=== PATIENT | male | born 1955 | race Caucasian/White ===

== ENCOUNTER 2016-11-16 13:23 | Day surgery (SDC) | payer OTHER ==
[~2016-11-16] VITALS: Ht 182.9 cm; Wt 145.2 kg
[~2016-11-16 13:23] MED LIST: 0.9% Sodium Chloride 1,000 ML IV SCH; ASPI-973 PO; Sodium Chloride LOK Flush 10 mL Syringe IV PRN; fentaNYL-PF 50 mCg/mL 2 mL Inj IVPUSH PRN
[2016-11-16] MEDS ORDERED: fentaNYL-PF 50 mCg/mL 2 mL Inj IVPUSH ONE (13:24)
[2016-11-16 14:42] VITALS: BP 143/84; PULSE 73; RESP 19; O2SAT 95
[2016-11-16 15:24] VITALS: BP 140/88; PULSE 70; RESP 16; O2SAT 90
[2016-11-16 15:34] VITALS: BP 138/89; PULSE 69; RESP 16; O2SAT 95
[2016-11-16 15:41] VITALS: BP 148/85; PULSE 68; RESP 16; O2SAT 93
--- NOTE | 2016-11-17 02:55 | ENDO ---
[address] [address] ENDOSCOPY PROCEDURE PATIENT: MAGALY CORREA : 1955 MR#: [id number] ADMIT: 11/16/2016 JOB ID: [id number] DATE OF SERVICE: 11/16/2016 PROCEDURE: Colonoscopy. INDICATION: Hematochezia. The patient's ASA classification is two. Mallampati score is two. MEDICATIONS: 1. Versed at 3 mg. 2. Fentanyl 75 mcg. INSTRUMENT USED: PCF H 180 AL. PREPARATION QUALITY: Fair. PROCEDURE DETAILS: After informed consent was obtained, the patient was brought into the GI suite, where he was placed on oxygen via nasal cannula and monitored with continuous pulse oximeter, telemetry and blood pressure monitoring. A time-out was performed. Then, he was placed in a left lateral decubitus position and medications were administered for sedation. Digital rectal exam was performed. I was unable to palpate the prostate secondary to patient's body habitus. The colonoscope was then inserted into the rectum and advanced under direct visualization to the cecum, which was identified by the presence of the ileocecal valve and appendiceal orifice. Once the cecum was reached, the colonoscope was withdrawn back into the rectum as the mucosa and lumen were examined. In the rectum, retroflexion was performed. Following retroflexion, remaining air in the rectum was suctioned, and procedure was completed. FINDINGS: 1. In the cecum, there was a diminutive polyp that was removed with cold biopsy forceps. 2. In the ascending colon, there was an approximately 8 mm sessile polyp that was removed with a hot snare. Following polypectomy there was heme noted at the polypectomy site and therefore, one hemoclip was placed to approximate the mucosal margins. No active bleeding was present. 3. In the descending colon, there was an approximately 6 mm sessile polyp that removed with a hot snare. 4. In the proximal rectum, there was an approximately 2 cm pedunculated polyp that was removed with a hot snare. IMPRESSION: 1. Cecal polyp. 2. Ascending colon polyp. 3. Descending polyp. 4. Rectal polyp. RECOMMENDATIONS: 1. Avoid NSAIDs and anticoagulants for 72 hours. 2. Repeat colonoscopy in three years. 3. Follow up in GI clinic in 4-6 weeks. COMPLICATIONS: None. ESTIMATED BLOOD LOSS: Less than 5 mL. Cc: Dr. Katerina Lambert
--- NOTE | 2016-11-20 14:58 | PATH ---
SURGICAL PATHOLOGY Attending Physician:Tiny Rojas CASE STATUS: Signed Out PATIENT NAME: MAGALY CORREA PID: [id number] : 1955 DATE COLLECTED:11/16/2016 00:00 SPECIMEN: 1: Colon, Polyp 2: Colon, Polyp 3: Colon, Polyp 4: Rectum, Biopsy CLINICAL HISTORY: 1. CECUM POLYP 2. ASCENDING POLYP 3. DESCENDING POLYP 4. RECTAL POLYP FINAL DIAGNOSIS: 1.CECUM POLYP: TUBULAR ADENOMA. 2.ASCENDING COLON POLYP: SESSILE SERRATED ADENOMA. 3.DESCENDING COLON POLYP: TUBULAR ADENOMA. 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 ICD10 D12.0 GROSS DESCRIPTION: Received are four formalin-filled containers, each labeled with the patient' s name. 1. Received in formalin, labeled with the patient' s name and "cecum polyp", is one fragment of witt, soft tissue measuring 0.2 x 0.1 x 0.1 cm. The fragment is totally submitted in cassette 1A. 2. Received in formalin, labeled with the patient' s name and "ascending polyp", is one fragment of witt, soft tissue measuring 0.5 x 0.4 x 0.2 cm. The fragment is trisected and totally submitted in cassette 2A. 3. Received in formalin, labeled with the patient' s name and "descending polyp", is one fragment of witt, soft tissue measuring 0.3 x 0.3 x 0.3 cm. The fragment is bisected and totally submitted in cassette 3A. 4. Received in formalin, labeled with the patient' s name and "rectal polyp", is one witt, soft tissue fragment measuring 1.0 x 0.9 x 0.8 cm. The fragment is divided, and all fragments are totally submitted in cassette 4A. ([id number]) MICRO DESCRIPTION: See diagnosis. ICD-9 CODES: CPT CODES: 1: 46459 2: 67995 3: 81396 4: 20923 Electronically Signed Out Nish Saleem MD [facility] [address], [place] [address] Technical component performed at [facility], [facility] [address], [place], [address]
== END 2016-11-16 23:59 | disposition home or self-care (01) ==
LOC: END 13:23
PROVIDERS: ATTEND Internal Medicine Gastroenterology
DX: D12.0 Benign neoplasm of cecum (principal); D12.4 Benign neoplasm of descending colon; D12.8 Benign neoplasm of rectum; K63.5 Polyp of colon; K92.1 Melena; I10 Essential (primary) hypertension; E78.5 Hyperlipidemia, unspecified; E66.01 Morbid (severe) obesity due to excess calories; Z90.79 Acquired absence of other genital organ(s); Z79.82 Long term (current) use of aspirin; Z87.891 Personal history of nicotine dependence; Z68.41 Body mass index [BMI] 40.0-44.9, adult
CPT/HCPCS: 45380; 45385; 99153; G0500; J2250; J3010; J7030

== ENCOUNTER 2016-11-19 08:53 | Observation (INO) | payer OTHER ==
[~2016-11-19] VITALS: Ht 182.9 cm; Wt 142.2 kg
[2016-11-19] VITALS (7 sets, daily range): BP systolic 147–193; BP diastolic 95–117; PULSE 57–66; RESP 14–18; O2SAT 94–96
[~2016-11-19 08:53] MED LIST changes: -0.9% Sodium Chloride 1,000 ML IV SCH; -Sodium Chloride LOK Flush 10 mL Syringe IV PRN; -fentaNYL-PF 50 mCg/mL 2 mL Inj IVPUSH PRN
--- NOTE | 2016-11-19 09:35 | ED.REPORT ---
HPI-GI Bleed Date of Service Nov 19, 2016 ED Provider: Jose Francisco Phillips MD Pt is a 61 y/o male w/ a hx of suspected HTN (uncontrolled), recent colonoscopy , presenting to the ED c/o rectal bleeding onset yesterday. On 11/16/2016 he had a colonoscopy with polypectomy (cecal polyp, ascending colon polyp, descending colon polyp, rectal polyp). The patient experienced some stool with bloody streaks last night. This morning he had 3 BMs with the first having bloody streaks with stool and the last 2 being blood without the presence of stool. He c/o associated nausea, mild lightheadedness. Pt denies CP, SOB, abdominal pain, vomiting, fever, chills. He reports his BP is normally elevated and there is a plan to be placed on antihypertensives if this persists. Nursing Notes Stated Complaint: BLOOD IN STOOL Chief Complaint: Male Abdominal Pain Nursing Notes Reviewed: Yes ([facility] labs, [employer] reconciled) Allergies: Coded Allergies: No Known Drug Allergies (Verified Allergy, Unknown, 11/19/16) Scheduled Aspirin (Aspirin) 81 Mg Tablet 81 MG PO DAILY Atorvastatin (Lipitor) 80 Mg Tablet 80 MG PO HS General Time Seen by Provider: 09:36 Chief Complaint Chief Complaint: Other (rectal bleeding) Hx Obtained From: Patient Arrived By: Walk-in Onset Occurred: 9 - 12 hours ago Symptom Duration: Since onset Progression Since Onset: Unchanged Severity: Current: No pain currently Severity: Maximum: No pain Similar Sx Previous: No Past Medical History Past Medical History Likely hypertension - not medicated, PCP is watching this for now Colonic polyps Past Surgical History Colonoscopy with polypectomy (cecal polyp, ascending colon polyp, descending colon polyp, rectal polyp) 11/16/2016 Testical retrieval Hernia repair Smoking History Light Tobacco Smoker Social History Alcohol Use: "Social" Drug Use: Denies drug use Ambulatory Status Independent Review of Systems Constitutional: Denies: Chills, Fever Respiratory: Denies: Non-productive cough, Shortness of breath Cardiovascular: Denies: Chest pain, Dyspnea on exertion GI: Reports: Bloody/tarry stool, Hematochezia, Nausea, Denies: Abdominal pain, Diarrhea, Melena, Vomiting Neurologic: Reports: Lightheaded, Denies: Focal weakness, Numbness Complete sys rev & neg: except as marked. Physical Exam Initial Vital Signs Vital Signs (First) Date Time Temp Pulse Resp B/P Pulse Ox O2 Delivery O2 Flow Rate FiO2 11/19/16 08:55 36.4 66 15 193/117 96 Room Air Initial VS: Reviewed, Vital signs abnormal Head / Eyes: Atraumatic, Normocephalic, PERRL ENT: Mucous membranes moist, Conjunctiva normal, No scleral icterus Neck: Supple, Full range of motion Extremities: Vascular intact, Neuro intact, No swelling, No tenderness Skin: Warm, Dry, No cyanosis Neurologic: Alert, Oriented, Nonfocal Psychiatric: Mood/affect normal, Behavior normal, Normal thought content General/Constitutional: Awake, Alert, No acute distress, Well appearing, Cooperative, Not toxic appearing Respiratory / Chest: Breath sounds NL, Breath sounds = bilat, No respiratory distress, No rales, No rhonchi, No wheezing, No retractions, No stridor Cardiovascular: Heart rate NL, Regular rhythm, Heart sounds NL, No gallop, No murmurs, No rubs, Cap refill not delayed, Peripheral circulation NL Abdomen: Atraumatic, Soft, Non-tender, No guarding, No rebound, No distention, No palpable mass Interpretation & Diagnostics Lab Results Interpretation Result Diagram: 11/19/16 1340 11/19/16 0945 Test 11/19/16 09:45 White Blood Count 8.9th/mm3 (3.8-10.1) Red Blood Count 4.80mil/mm3 (4.40-5.80) Mean Corpuscular Volume 92.5fL (81-100) Mean Corpuscular Hemoglobin 31.0pg (27.0-35.0) Mean Corpuscular Hemoglobin Concent 33.6% (32.0-37.0) Red Cell Distribution Width 13.1% (12.3-15.4) Platelet Count 199bil/L (150-400) Neutrophils (%) (Auto) 59.6% (40-74) Lymphocytes (%) (Auto) 24.7% (14-46) Monocytes (%) (Auto) 9.5% (4-12) Eosinophils (%) (Auto) 5.4% (0-5) Basophils (%) (Auto) 0.6% (0-3) Sodium Level 136mEq/L (134-144) Potassium Level 4.1mEq/L (3.5-5.2) Chloride Level 100mEq/L (97-108) Carbon Dioxide Level 24mmol/L (18-29) Blood Urea Nitrogen 24mg/dL (6-24) Creatinine 1.00mg/dL (0.76-1.27) Estimat Glomerular Filtration Rate 81mL/min (>59) Glucose Level 108mg/dL (60-99) Calcium Level 9.4mg/dL (8.5-10.1) Total Bilirubin 0.6mg/dL (0.0-1.2) Aspartate Amino Transf (AST/SGOT) 17U/L (0-50) Alanine Aminotransferase (ALT/SGPT) 10U/L (0-44) Alkaline Phosphatase 80U/L (25-160) Total Protein 7.0g/dL (6.4-8.4) Albumin 4.1g/dL (3.4-5.0) Lab Results Interpretation: CBC normal CMP normal ECG Interpretation Time: 10:09 Interpreted by: ED physician Normal ECG Interpretation: Normal ECG w/ rate of... (62), Normal rate, Normal sinus rhythm, No acute ischemic changes, Normal QRS, Normal axis, Normal intervals, Adequate tracing Re-Eval/Medical Decision Med Decision/Clinical Course This is a 61-year-old man presents several days following a colonoscopy with for colon polyps removed reports he did well first day, but has now developed marked rectal bleeding with 3 episodes of "lots of blood" and feeling woozy this morning. Initially went to the urgent care referred to the ED. Here on arrival in the department he is feeling better, he denies any abdominal pain, he is hypertensive (the HTN improved without any intervention), but not tachycardic-he has not had any rectal bleeding here. He generally appears clinically well. His blood work is normal with a normal hematocrit. 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 Source of Hx: Old records Re-Evaluation/Progress : Time of Eval: 11:24 Re-Evaluation/Progress Note: Pt rechecked. Informed pt of need for admission for GI observation. Pt understands and agrees with need for admission. All questions addressed. Consultation #1: Referral / Consult Name: Katia Owen MD Call Returned at: 11:24 Post Adoption Coordinator: Agrees with eval, Agrees with plan Note: Case discussed with GI. Recommends admit for observation. Consultation #2: Referral / Consult Name: Kristyn Gaines Consulted With: Hospitalist Call Returned at: 13:07 Post Adoption Coordinator: Will see patient, Agrees with eval, Agrees with plan, Accepts admit Differential Diagnosis: Positive: GI Bleed (post polypectomy), Negative: Anal fissures, Foreign body intestine, Foreign body rectum Counseled Regarding: Diagnosis, Lab results, Need for admission Discharge & Departure Impression: Primary Impression: Lower GI bleed Additional Impressions: S/P colonoscopy S/P colonoscopic polypectomy Uncontrolled hypertension Disposition: ADMITTED TO HOSPITAL Discharge Condition All VS Reviewed: Yes Condition: Stable Referrals: Katerina Humphrey MD (PCP) Sam Attestation Portions of this note were transcribed by Quinn Nur. I, Dr. Phillips personally performed the history, physical exam and medical decision-making; I reviewed and confirmed the accuracy of the information in the transcribed note. Signed by Sam Marcial, 11/19/16 - 1000 copies to: Katerina Humphrey MD, Matthew F MD Nov 19, 2016 09:35 QUINN NUR Nov 19, 2016 09:42 personally performed the history, physical exam and medical decision-making; I reviewed and confirmed the accuracy of the information in the transcribed note. Signed by Sam Marcial, 11/19/16 - 1000 copies to: Katerina Humphrey MD, Matthew F MD Nov 19, 2016 09:35 QUINN NUR Nov 19, 2016 09:42
[2016-11-19 10:59] LABS: BASOPHILS % (AUTO) 0.6 % (0-3); EOSINOPHILS % (AUTO) 5.4 % (0-5); MONOCYTES % (AUTO) 9.5 % (4-12); Mean Corpuscular Volume 92.5 fL (81-100); NEUTROPHILS % (AUTO) 59.6 % (40-74); Platelet Count 199 bil/L (150-400)
[2016-11-19] MEDS ORDERED: Alum-Mag Hydrox-Simeth 30 mL Suspension PO PRN ×2 (13:00→13:15)
[2016-11-19] MEDS ORDERED: Ondansetron 2 mg/mL 2 mL Inj IVPUSH PRN (13:00)
[2016-11-19] MEDS ORDERED: Polyethylene Glycol (PEG) 17 Gm Powder PO PRN (13:15)
[2016-11-19] MEDS ORDERED: EPINEPHrine 0.1 mg/mL 10 mL Syringe ONE (13:19)
[2016-11-19] MEDS ORDERED: ATOR80TA PO (14:23)
[2016-11-19] MEDS ORDERED: PEG/Electrolytes 4,000 mL Solution PO ONE (15:05)
[2016-11-19] MEDS: 0.9% Sodium Chloride 1,000 ML IV SCH (15:45)
[2016-11-19] MEDS: Famotidine Inj 20 MG in IV Premix 1 EACH IV SCH (20:57)
--- NOTE | 2016-11-19 21:50 | PCM.HPMED ---
Subjective Date of Service Nov 19, 2016 Primary Provider: Admitting Physician: Primary Care Physician: Katerina Humphrey MD Attending Physician: Admit Status: From the Emergency Department Chief Complaint: Lower GI bleed History of Present Illness: 61-year-old white male with past medical history of hypertension, hyperlipidemia presenting today with concern regarding hematochezia. Patient has undergone colonoscopy 2 days ago during which 4 polyps were snared and were sent for back biopsy pathology. He states that he was okay after the colonoscopy and Saturday. He did okay on Saturday yesterday he started having some blood in his stool. He did have some blood in his stool prior to the colonoscopy thus he did not think much of it. This a.m. he had 3 bowel movements last 2 were filled with blood per patient he says that he is not dizzy at the time though he is a little bit lightheaded currently. He denies nausea. He has no abdominal pain or cramping and no back pain. He took aspirin yesterday and today. States that he does not have a PCP he went to walk-in clinic at [facility] where they recommended a colonoscopy. They also gave him the prescription for Lipitor. He had a discussion about hypertension during this visit with that same provider. In the ER EKG showed normal sinus rhythm and was hypertensive on arrival at 193/ 117. In the room currently he has a BP of 156/95. Initial H&H showed stable hemoglobin 14.[address] Owen was contacted from the ER, he aspirated GoLYTELY prep in case patient will need a scope tomorrow a.m. Review of Systems: Gen.: No weight gain patient has been having no fevers and malaise Eyes: no visual disturbances or blurring vision HEENT: No nose/throat drainage, no pain in ears or throat, no hearing loss Lymph: No lymph nodes noted Cardiac: No chest pain, orthopnea, PND, palpitations , pedal edema or no dyspnea on exertion Pulmonary: Denies wheezing or bringing up of sputum denies worsening dyspnea and cough, left-sided chest pain GI: No anorexia nausea vomiting, positive for blood the stool : no dysuria hematuria urinary frequency or decrease in urine output Musculoskeletal: Joint swelling no joint pain no new muscle aches or back pain Neuro: No syncope, seizures no loss of consciousness no new focal weakness, numbness or tingling Psychiatric: New new anxiety insomnia or depression Endocrine: No new heat or cold intolerances polyuria or polydipsia Hematology: No lymphadenopathy or easy bleeding or bruising noted skin: No new rashes, stasis dermatitis Allergies Coded Allergies: No Known Drug Allergies (Verified Allergy, Unknown, 11/19/16) Home Medications Aspirin and Lipitor PMH Hypertension, prior rectal bleeding of unknown etiology Surgical History Surgery for undescended left testicle 15 years ago, hernia repair Family History Mother had a stroke recently at 83 and she is in the hospital Dad call: Still alive has hypertension Social History Occupation: Works at a [employer] Hx Alcohol Use: Yes (Rare) Hx Substance Use: No Hx Tobacco Use: Yes (his process of quitting says that he smokes one to 2 cigarettes per day) Smoking Status: Former Smoker, Light Tobacco Smoker (1-2 cigarrettes per day) Living Arrangement: Alone Exam Vital Signs Vital Sign - Last Date Time Temp Pulse Resp B/P Pulse Ox O2 Delivery O2 Flow Rate FiO2 11/19/16 09:59 61 14 165/101 96 Room Air 11/19/16 08:55 36.4 Exam General: NAD, laying in bed, HEENT: NCAT, Eyes: Maupin conjunctivae. No ptosis, Neck: No masses, trachea midline, no thyromegaly Lungs: CTA with normal respiratory effort, no crackles or wheezes CV: RRR, no murmurs/rubs/gallops, normal PMI GI: Soft, non-tender with no hepatosplenomegaly, normal sounds MSK: Normal gait and station, no digital cyanosis Skin: Warm and dry. No rash, lesions or ulcers Psych: A&O X3, with appropriate affect Psych: Negative for agitation and anxiety Lab and Diagnostics Result Diagram: 11/19/1694411/19/16944 Assessment & Plan This is a 61-year-old white male without much medical follow-up prior to a few weeks ago presenting today with complaints of hematochezia following a colonoscopy and a polypectomy. Hemoglobin currently is steady. #1 Hematochezia:L likely due to polypectomy -- Consult Dr. Talley, contacted him and he recommends a GoLYTELY prep. If prep runs clear, patient does not have active bleeding. If he does show signs of rectal bleeding he might need a follow-up colonoscopy tomorrow am. -- NSS 100 mL/h, NPO -- Every 4 hours H&H -- Hold aspirin #2 Hypertension -- Start patient on chlorthalidone 12.5 mg daily by mouth #3 Hyperlipidemia -- Currently holding his statin -- Plan to resume tomorrow #4 Tobacco Abuse -- Nicotine Patch PRN Disposition: To home if he is cleared after overnight H&H, and remained stable Resuscitation Status: CPR: Attempt Resuscitation (his friend Anne is his alternate decision maker) Time spent 35 minutes Kristyn Gaines DO Nov 19, 2016 13:17
--- NOTE | 2016-11-19 23:54 | CONS ---
[address] [address] CONSULTATION REPORT PATIENT: MAGALY CORREA : 1955 MR#: [id number] ADMIT: 11/19/2016 JOB ID: [id number] DATE OF SERVICE: REASON FOR CONSULTATION: Rectal bleeding. PHYSICIAN REQUESTING CONSULTATION: Jose Francisco Phillips MD, ED physician. HISTORY OF PRESENTING ILLNESS: The patient is a very pleasant, 61-year-old gentleman, who underwent a colonoscopy November 16, 2016, for evaluation of hematochezia. The patient tolerated the procedure well and, in his colon, was noted to have a diminutive polyp that was removed with cold biopsy forceps. In the ascending colon, there was an approximately 8 mm sessile polyp that was removed with a hot snare. Following polypectomy, there was heme noted at the polypectomy site and therefore, one hemoclip was placed to approximate the mucosal margins. No active bleeding was seen following placement. In the descending colon, there was an approximately 6 mm sessile polyp that was removed with a hot snare. In the proximal rectum, there was an approximately 2 cm pedunculated polyp that was removed with a hot snare. The patient states that day, he went home and was well. The following day, had a normal bowel movement as well as on Saturday morning. However, Saturday afternoon, he reports having maroon stool, followed by two episodes of bright red rectal bleeding. He presented to the Urgent Care and then from there was referred to our emergency department. In the emergency department, he was noted to be afebrile with stable vital signs, with a blood pressure of 193/117, pulse of 66, O2 saturation of 96% on room air. Initial hemoglobin was 14.9 and hematocrit 44.4, and that was at approximately 9:45 a.m. Subsequently throughout the day, his hemoglobin has remained stable and his most recent hemoglobin and hematocrit from 5:14 p.m. today shows hemoglobin of 15.2 with hematocrit of 45.5. He denies any nausea, vomiting, abdominal pain, any diarrhea. He does take a baby aspirin, but otherwise denies any chronic NSAID use. Currently, he is without any complaints. He denies any lightheadedness, shortness of breath or chest pain. PAST MEDICAL HISTORY: Includes possible hypertension. PAST SURGICAL HISTORY: Includes testicular surgery hernia repair. SOCIAL HISTORY: He does smoke cigarettes occasionally and drinks alcohol socially. Denies any history of intravenous or illicit drug use. HOME MEDICATIONS: Include: 1. Aspirin 81 mg. 2. Atorvastatin. ALLERGIES: He has no known drug allergies. REVIEW OF SYSTEMS: His 10 point review of systems is otherwise unremarkable. PHYSICAL EXAMINATION: Vital signs show a temperature of 36.5, his pulse is 57, blood pressure is 157/95, respiratory rate is 18, O2 saturation is 94% on room air. Generally, he is an obese, [id number] gentleman, in no apparent distress. He is oriented to person, place, and time. Answers questions appropriately. HEENT: No pallor. No icterus. Oropharynx is clear. Chest exam is clear to auscultation bilaterally. Cardiovascular exam: S1, S2 heard. Abdomen: Obese, soft, nontender, nondistended, without hepatosplenomegaly. Extremities without edema. LABORATORY DATA: As discussed above. In addition, his comprehensive metabolic profile was normal except for a minimally elevated glucose of 108. ASSESSMENT/PLAN: A 61-year-old gentleman with a history of hematochezia, who now presents to the hospital with bright red rectal bleeding following colonoscopy on November 16. I suspect we may be dealing with a post polypectomy bleed versus benign anorectal disease. However, as his hemoglobin continues to be stable and he has had no episodes of bleeding during his hospital stay, will continue to monitor stool output. Also recommended that he prep with GoLYTELY in case bleeding should restart and then he would be prepped for colonoscopy to further evaluate and possibly treat bleeding site. In the meantime, I would continue to follow his H and H closely. He can have a clear liquid diet and if tomorrow morning his H and H remain stable and he has no further bleeding, he could be discharged home. If, however, his H and H should trend down or if he continues to have rectal bleeding, we will then plan for colonoscopy in the a.m. Thank you for allowing me to participate in this patient's care. If you have any further questions, please do not hesitate to contact me.
[2016-11-20] VITALS (11 sets, daily range): BP systolic 129–151; BP diastolic 80–94; PULSE 54–71; RESP 14–20; O2SAT 95–100
[2016-11-20] MEDS: Famotidine Inj 20 MG in IV Premix 1 EACH IV SCH ×2 (07:49→19:58)
--- NOTE | 2016-11-20 08:35 | PCM.PNMED ---
Subjective Date of Service Nov 20, 2016 Subjective Patient has had several bloody BM, though his H&H has remained stable. He had a 1 unit drop since admission. He says he was up all night having at least 10 BM. He has no other concerns. On 2L oxygen for sleep Exam Vital Signs Vital Sign - Last Date Time Temp Pulse Resp B/P Pulse Ox O2 Delivery O2 Flow Rate FiO2 11/20/16 06:07 71 16 129/84 98 Nasal Cannula 1.00 11/20/16 00:27 36.9 Intake and Output 11/19/16 11/19/16 11/20/16 Cumulative From/Thru 15:00 23:00 07:00 11/19/16 08:55 - 11/20/16 05:52 Intake Total 2174 ml 5177 ml 7351 ml Output Total 500 ml 1525 ml 2025 ml Balance 1674 ml 3652 ml 5326 ml Intake Oral 2000 ml 4000 ml 6000 ml IV Total 174 ml 1177 ml 1351 ml Output Stool Total 500 ml 1525 ml 2025 ml # Voids 3 3 Exam General: NAD HEENT: NCAt Heart: RRR, no s3/s4 murmurs Lungs: CTA, no crackles or wheezes Abd: NT/ND, normal BS Ext: No swelling Neck: Large neck, trachea is central Psych: neg for anxiety and agitation Neuro: no focal deficits IVs and Medications IV Fluids NSS 150 cc/hr Medications Reviewed: Medications were reviewed in detail Lab and Diagnostics Result Diagram: 11/20/16 0130 11/19/16 0945 Assessment & Plan This is a 61-year-old white male without much medical follow-up prior to a few weeks ago presenting today with complaints of hematochezia following a colonoscopy and a polypectomy. Hemoglobin currently is steady. #1 Hematochezia, POA : likely due to polypectomy -- Consult Dr. Talley, contacted him and he recommends a GoLYTELY prep. If prep runs clear, patient does not have active bleeding. If he does show signs of rectal bleeding he might need a follow-up colonoscopy tomorrow am. -- NSS 150 mL/h, NPO -- Every 4 hours H&H -- Hold aspirin -- He may need a scope today as his bleeding has not lightened. Called Dr. Owen and he will take pt to scope. #2 Hypertension -- Started patient on chlorthalidone 12.5 mg daily by mouth, HTN better controlled today #3 Hyperlipidemia, chronic -- Currently holding his statin #4 MILADIS: -- pt needs outpt sleep study -- many need 2L of oxygen to go home on #4 Tobacco Abuse, chronic -- Nicotine Patch PRN Disposition: To home if he is cleared after overnight H&H, and remained stable VTE Mechanical Devices: Intermittant Pneumatic CD Resuscitation Status: CPR: Attempt Resuscitation Time spent 25 min Kristyn Gaines DO Nov 20, 2016 08:35
[2016-11-20] MEDS: 0.9% Sodium Chloride 1,000 ML IV SCH ×5 (09:48→19:18)
[2016-11-20] MEDS ORDERED: fentaNYL-PF 50 mCg/mL 2 mL Inj ONE (13:59)
--- NOTE | 2016-11-20 21:06 | ENDO ---
[address] [address] ENDOSCOPY PROCEDURE PATIENT: MAGALY CORREA : 1955 MR#: [id number] ADMIT: 11/19/2016 JOB ID: [id number] DATE OF SERVICE: 11/20/2016 PROCEDURE: Colonoscopy. INDICATIONS: Post polypectomy bleeding. INDICATIONS: The patient is a 61-year-old gentleman who has a history of hematochezia for which he underwent a colonoscopy back on November 16, 2016. He was apparently well up until yesterday morning when he began having bright red blood per rectum. He therefore presented to the emergency department. Yesterday, while he was prepped for a colonoscopy, he continued to have ongoing blood-tinged rectal output and, therefore, colonoscopy is being performed today. MEDICATIONS: 1. Versed 3 mg. 2. Fentanyl 100 mcg. INSTRUMENT USED: PCF H 190 L. PREPARATION QUALITY: Fair. PROCEDURE DETAILS: After informed consent was obtained, the patient was brought to the GI suite, where he was placed on oxygen via nasal cannula and monitored with continuous pulse oximeter, telemetry, and blood pressure monitoring. A time-out was performed. Then, he was placed in the left lateral decubitus position and medications were administered for sedation. Digital rectal exam was performed which revealed old blood in the rectum. The colonoscope was then inserted into the rectum and advanced under direct visualization to the cecum which identified by the presence of the ileocecal valve and appendiceal orifice. As the colonoscope was withdrawn in the ascending colon just distal to the ileocecal valve, there was a large clot just distal to the ileocecal valve adjacent to a hemoclip. Using an injection needle, epinephrine was injected into the clot as well as surrounding the clot. Then, using irrigation, we attempted to dislodge the clot. However, this was unsuccessful. Therefore, using cold biopsy forceps, the clot was removed. Following removal of the clot, there was oozing of blood from what appeared to be a superficial blood vessel and therefore further epinephrine was injected and following this there was cessation of bleeding. As we were in the right colon, I was hesitant to use Gold probe cautery. Therefore using APC with right colon settings, the area was treated. The colonoscope was then withdrawn back into the rectum and as we withdrew the colonoscope distally, in the descending colon there was evidence of a previous polypectomy. The site did not show any evidence of recent bleeding, and there was no clot seen at the area of the site. Then, as we approached the proximal rectum there was also a polypectomy scar seen from polypectomy that was removed there and, again, no evidence of bleeding was seen at this site and there was no clot as well. Once we reached the rectum, I decided to advance the colon back to the ascending colon to take a 2nd look at the area, and upon inspection, the surrounding mucosa appeared to be slightly pale, eschar was intact and no blood was seen. The colonoscope was then withdrawn. Retroflexion was performed in the rectum. Following retroflexion, remaining air in the rectum was suctioned, and procedure was completed. IMPRESSION: Post polypectomy bleed from ascending colon polyp that was previously removed. Area was treated with application of epinephrine and argon plasma coagulation. Previous polypectomy sites in the descending and colon appeared to be not the culprit for bleeding as there was no evidence of active bleeding, and there was no evidence of clot formation or evidence to suggest recent bleeding. RECOMMENDATIONS: A clear liquid diet today. Continue to follow H and H closely, and if no further bleeding and H and H remains stable in the morning, he can be discharged home. The above was discussed with the patient and his significant other following the procedure, and they stated understanding.
[2016-11-21 01:15] VITALS: BP 145/99; PULSE 65; RESP 17; O2SAT 98
[2016-11-21] MEDS: 0.9% Sodium Chloride 1,000 ML IV SCH (02:43)
[2016-11-21 06:01] VITALS: BP 165/95; PULSE 66; RESP 18; O2SAT 95
[2016-11-21] MEDS: Famotidine Inj 20 MG in IV Premix 1 EACH IV SCH (07:28)
[2016-11-21] MEDS ORDERED: HYG25 PO (08:16)
--- NOTE | 2016-11-21 08:27 | PCM.DIMED ---
Discharge Instructions Date of Service Nov 21, 2016 Dates of Hospitalization Nov 19, 2016 at 13:18 Discharge Diagnosis Discharge Diagnosis Rectal bleeding due to polypectomy, HTN Medication Instructions Additional med instructions Note the new medication Chlorthalidone 12.5 mg daily. Diet Discharge Diet: Heart Healthy Activity Discharge Activity: No restrictions Call your provider Call your provider for: Fever or Chills, Shortness of breath, Bleeding, Chest pain, Vomitting, Excessive diarrhea, Weakness (unilateral), Other Patient Instructions Follow-up plan Please F/U at the residency clinic in one-two weeks F/U CBC and BMP prior to F/U at the clinic. PCP to address outpatient sleep study F/U with Dr. Cadena in 3-4 weeks Kristyn Gaines DO Nov 21, 2016 08:18
--- NOTE | 2016-11-21 08:32 | PCM.DC.MED ---
Discharge Summary Date of Service Nov 21, 2016 Dates of Hospitalization Date of Hospital Admission Nov 19, 2016 at 13:18 Date of Discharge: Nov 21, 2016 Providers: Admitting Physician: Sabas Rose DO Primary Care Physician: Katerina Humphrey MD Attending Physician: Sabas Rose DO Diagnosis at Time of Discharge Diagnosis at Time of Discharge Rectal bleeding due to polypectomy, HTN Consultations GI Procedures Invasive Procedures Colonoscopy 11/20/16 Brief History 61-year-old white male with past medical history of hypertension, hyperlipidemia presenting today with concern regarding hematochezia. Patient has undergone colonoscopy 2 days ago during which 4 polyps were snared and were sent for back biopsy pathology. He states that he was okay after the colonoscopy and Saturday. He did okay on Saturday yesterday he started having some blood in his stool. He did have some blood in his stool prior to the colonoscopy thus he did not think much of it. This a.m. he had 3 bowel movements last 2 were filled with blood per patient he says that he is not dizzy at the time though he is a little bit lightheaded currently. He denies nausea. He has no abdominal pain or cramping and no back pain. He took aspirin yesterday and today. States that he does not have a PCP he went to walk-in clinic at [facility] where they recommended a colonoscopy. They also gave him the prescription for Lipitor. He had a discussion about hypertension during this visit with that same provider. In the ER EKG showed normal sinus rhythm and was hypertensive on arrival at 193/ 117. In the room currently he has a BP of 156/95. Initial H&H showed stable hemoglobin 14.[address] Owen was contacted from the ER, he aspirated GoLYTELY prep in case patient will need a scope tomorrow a.m. Hospital Course This is a 61-year-old white male without much medical follow-up prior to a few weeks ago presenting today with complaints of hematochezia following a colonoscopy and a polypectomy. Hemoglobin currently is steady. #1 Hematochezia, POA : likely due to polypectomy -- Consult Dr. Talley, contacted him and he recommends a GoLYTELY prep. If prep runs clear, patient does not have active bleeding. If he does show signs of rectal bleeding he might need a follow-up colonoscopy tomorrow am. -- NSS 150 mL/h, NPO -- Every 4 hours H&H -- Hold aspirin -- Dr. Cadena did a scope yesterday and found a bleeding site prior ascending colon polypectomy. He brought the bleeding under control, patient had no overnight BM or bleeding, H&H stable in the AM. -- No need for f/u with Dr. Cadena #2 Hypertension -- Started patient on chlorthalidone 12.5 mg daily by mouth, HTN better controlled #3 Hyperlipidemia, chronic -- Currently holding his statin -- may restart upon d/c #4 MILADIS: -- pt needs outpt sleep study #4 Tobacco Abuse, chronic -- Nicotine Patch PRN Disposition: To home if he is cleared after overnight H&H, and remained stable Exam Vital Signs (Last) Date Time Temp Pulse Resp B/P Pulse Ox O2 Delivery O2 Flow Rate FiO2 11/21/16 06:01 36.7 66 18 165/95 95 Room Air 11/20/16 10:00 1.00 Exam General: NAD HEENT: NCAt Heart: RRR, no s3/s4 murmurs Lungs: CTA, no crackles or wheezes Abd: NT/ND, normal BS Ext: No swelling Neck: Large neck, trachea is central Psych: neg for anxiety and agitation Neuro: no focal deficits Test 11/19/16 09:45 11/21/16 07:17 White Blood Count 8.9th/mm3 (3.8-10.1) Red Blood Count 4.80mil/mm3 (4.40-5.80) Mean Corpuscular Volume 92.5fL (81-100) Mean Corpuscular Hemoglobin 31.0pg (27.0-35.0) Mean Corpuscular Hemoglobin Concent 33.6% (32.0-37.0) Red Cell Distribution Width 13.1% (12.3-15.4) Platelet Count 199bil/L (150-400) Neutrophils (%) (Auto) 59.6% (40-74) Lymphocytes (%) (Auto) 24.7% (14-46) Monocytes (%) (Auto) 9.5% (4-12) Eosinophils (%) (Auto) 5.4% (0-5) Basophils (%) (Auto) 0.6% (0-3) Sodium Level 136mEq/L (134-144) Potassium Level 4.1mEq/L (3.5-5.2) Chloride Level 100mEq/L (97-108) Carbon Dioxide Level 24mmol/L (18-29) Blood Urea Nitrogen 24mg/dL (6-24) Creatinine 1.00mg/dL (0.76-1.27) Estimat Glomerular Filtration Rate 81mL/min (>59) Glucose Level 108mg/dL (60-99) Calcium Level 9.4mg/dL (8.5-10.1) Total Bilirubin 0.6mg/dL (0.0-1.2) Aspartate Amino Transf (AST/SGOT) 17U/L (0-50) Alanine Aminotransferase (ALT/SGPT) 10U/L (0-44) Alkaline Phosphatase 80U/L (25-160) Total Protein 7.0g/dL (6.4-8.4) Albumin 4.1g/dL (3.4-5.0) Hemoglobin 13.9g/dL (13.8-17.2) Hematocrit 41.6% (41.0-50.0) Discharge Medications Discharge Medications Aspirin (Aspirin) 81 Mg Tablet 81 MG PO DAILY (Reported) Atorvastatin (Lipitor) 80 Mg Tablet 80 MG PO HS (Reported) Chlorthalidone (Chlorthalidone) 25 Mg Tablet 12.5 MG PO DAILY Prescribed by: SABAS ROSE DO Additional med instructions Note the new medication Chlorthalidone 12.5 mg daily. Followup Plan Follow-up plan Please F/U at the residency clinic in one-two weeks F/U CBC and BMP prior to F/U at the clinic. PCP to address outpatient sleep study Discharge Diet: Heart Healthy Discharge Activity: No restrictions Sabas Rose DO Nov 21, 2016 08:32
== END 2016-11-21 09:50 | disposition home or self-care (01) ==
LOC: SED 08:53 → MOC 13:18 → INTOOBSV 13:18
PROVIDERS: ADMIT Family Medicine; ATTEND Family Medicine
DX: K91.840 Postprocedural hemorrhage of a digestive system organ or structure following a digestive system procedure (principal); I10 Essential (primary) hypertension; E78.5 Hyperlipidemia, unspecified; G47.33 Obstructive sleep apnea (adult) (pediatric); F17.210 Nicotine dependence, cigarettes, uncomplicated; Z79.82 Long term (current) use of aspirin
CPT/HCPCS: 36415; 45382; 80053; 85014; 85018; 85025; 86850; 93005; 96374; 96376; 99153; 99285; G0378; G0500; J0171; J2250; J3010; J3490; J7030